=== PATIENT | female | born 1975 | race Caucasian/White ===

== ENCOUNTER → 2016-08-26 | Outpatient (CLI) | payer OTHER ==
--- NOTE | 2016-08-30 07:46 | MM ---
Reason for exam: screening (asymptomatic). Last mammogram was performed 1 year ago. History: Family history of breast cancer in maternal grandmother at age 76 and breast cancer in maternal aunt at age 50. Took hormonal contraceptives for 21 years 1 month beginning at age 17. Physical Findings: A clinical breast exam by your physician is recommended on an annual basis and results should be correlated with mammographic findings. MG Screening Mammo w CAD Bilateral CC and MLO view(s) were taken. Prior study comparison: August 21, 2015, bilateral MG 3d screening mammo w/cad. July 22, 2014, bilateral MG screening mammo w CAD. June 26, 2013, bilateral digital screening mammo w/CAD. The breast tissue is heterogeneously dense. This may lower the sensitivity of mammography. No significant changes when compared with prior studies. ASSESSMENT: Negative, BI-RAD 1 RECOMMENDATION: Routine screening mammogram of both breasts in 1 year.
== END | disposition home or self-care (01) ==
LOC: RADMAMWWP 15:12
PROVIDERS: ATTEND Obstetrics & Gynecology
DX: Z12.31 Encounter for screening mammogram for malignant neoplasm of breast (principal)

== ENCOUNTER → 2018-01-08 | Outpatient (CLI) | payer OTHER ==
--- NOTE | 2018-01-08 09:57 | CT ---
EXAMINATION TYPE: CT abdomen pelvis wo con DATE OF EXAM: 01/08/2018 COMPARISON: None HISTORY: Abdominal pain/cramping CT DLP: 310.8 mGycm Automated exposure control for dose reduction was used. TECHNIQUE: Helical acquisition of images was performed from the lung bases through the pelvis. No IV contrast was administered. Oral contrast was administered. Lack of IV contrast limits assessment of the abdominal viscera. FINDINGS: LUNG BASES: No significant abnormality is appreciated. LIVER/GB: Postcholecystectomy clips are noted. No unusual fluid collections are seen. Liver homogeneo usly noncontrast technique. PANCREAS: No significant abnormality is seen. SPLEEN: No significant abnormality is seen. ADRENALS: No significant abnormality is seen. KIDNEYS: No significant abnormality is seen. ADENOPATHY: None visualized. OSSEOUS STRUCTURES: Severe degenerative disc disease L5-S1 with vacuum disc BOWEL: Bowel gas pattern nonspecific with no obstruction. Retained bowel content within the colon. A ppendix normal. OTHER: No free fluid. Aorta of normal caliber. Right adnexal cyst likely ovarian measuring 2 cm. Tiny fat-containing periumbilical hernia. IMPRESSION: 1. Postcholecystectomy. 2. There is a 2.1 cm right adnexal cyst likely ovarian correlate clinically. 3. No free fluid or free air. No diagnostic evidence of bowel obstruction.
== END | disposition home or self-care (01) ==
LOC: RADCTMAIN 07:53
PROVIDERS: ATTEND Family Medicine
DX: N83.8 Other noninflammatory disorders of ovary, fallopian tube and broad ligament (principal); Z90.49 Acquired absence of other specified parts of digestive tract
CPT/HCPCS: 74176

== ENCOUNTER → 2018-03-02 | Outpatient (CLI) | payer OTHER ==
--- NOTE | 2018-03-02 15:14 | US ---
EXAMINATION TYPE: US pelvic complete DATE OF EXAM: 03/02/2018 COMPARISON: CT 01/08/18 CLINICAL HISTORY: N83.209 OVARIAN CYST. Right ovarian cyst seen on previous CT TECHNIQUE: Transabdominal (TA). Date of LMP: 02/17/18 EXAM MEASUREMENTS: Uterus: 7.6 x 4.2 x 3.6 cm Endometrial Stripe: 0.3 cm Right Ovary: 2.9 x 2.6 x 2.2 cm Left Ovary: 2.5 x 1.8 x 1.7 cm 1. Uterus: Anteverted wnl 2. Endometrium: wnl 3. Right Ovary: Ovarian cyst = 2.7 x 1.6 x 2.0 cm 4. Left Ovary: wnl 5. Bilateral Adnexa: wnl 6. Posterior cul-de-sac: wnl IMPRESSION: 1. Right ovarian cyst. Follow-up is recommended.
== END | disposition home or self-care (01) ==
LOC: RADUSWWP 14:46
PROVIDERS: ATTEND Family Medicine
DX: N83.201 Unspecified ovarian cyst, right side (principal)
CPT/HCPCS: 76856

== ENCOUNTER → 2018-07-11 | Outpatient (CLI) | payer OTHER ==
--- NOTE | 2018-07-11 10:10 | MM ---
Reason for exam: screening (asymptomatic). Last mammogram was performed 1 year and 10 months ago. History: Family history of breast cancer in maternal grandmother at age 76 and breast cancer in maternal aunt at age 50. Took hormonal contraceptives for 21 years 1 month beginning at age 17. Physical Findings: A clinical breast exam by your physician is recommended on an annual basis and results should be correlated with mammographic findings. MG Screening Mammo w CAD Bilateral CC and MLO view(s) were taken. Prior study comparison: August 26, 2016, bilateral MG screening mammo w CAD. August 21, 2015, bilateral MG 3d screening mammo w/cad. The breast tissue is heterogeneously dense. This may lower the sensitivity of mammography. Partially obscured 1.2cm nodularity centrally right CC view. There are dense tissues and this is obscured on the MLO view. ASSESSMENT: Incomplete: need additional imaging evaluation, BI-RAD 0 RECOMMENDATION: Special view mammogram and ultrasound of the left breast. [facility] will attempt to contact patient to return for supplemental views and ultrasound.
== END | disposition home or self-care (01) ==
LOC: RADMAMWWP 07:29
PROVIDERS: ATTEND Obstetrics & Gynecology
DX: Z12.31 Encounter for screening mammogram for malignant neoplasm of breast (principal)
CPT/HCPCS: 77067

== ENCOUNTER → 2018-07-20 | Outpatient (CLI) | payer OTHER ==
--- NOTE | 2018-07-20 10:33 | MM ---
Reason for exam: additional evaluation requested from abnormal screening. Last mammogram was performed less than 1 month ago. History: Family history of breast cancer in maternal grandmother at age 76 and breast cancer in maternal aunt at age 50. Took hormonal contraceptives for 21 years 1 month beginning at age 17. Physical Findings: Nurse Summary: 1cm nodule in the left rebast at 12-2 o'clock (nurse kp). MG 3D Work Up W/Cad LT CC, MLO, and LM view(s) were taken of the left breast. Prior study comparison: July 11, 2018, bilateral MG screening mammo w CAD. August 26, 2016, bilateral MG screening mammo w CAD. The breast tissue is heterogeneously dense. This may lower the sensitivity of mammography. Asymmetric breast tissue in the left breast at 12 o'clock 5cm from nipple. These results were verbally communicated with the patient and result sheet given to the patient on 07/20/18. ASSESSMENT: Incomplete: need additional imaging evaluation, BI-RAD 0 RECOMMENDATION: Ultrasound of the left breast.
--- NOTE | 2018-07-20 10:35 | USB ---
Reason for exam: additional evaluation requested from abnormal screening. History: Family history of breast cancer in maternal grandmother at age 76 and breast cancer in maternal aunt at age 50. Took hormonal contraceptives for 21 years 1 month beginning at age 17. US Breast Workup Limited LT Left limited breast ultrasound including focal area of concern, retroareolar and axilla demonstrates a 1.1 x 1.5 x 0.8cm oval, cystic lesion at 1 o'clock BB and duct ectasia at the posterior nipple. These results were verbally communicated with the patient and result sheet given to the patient on 07/20/18. ASSESSMENT: Benign, BI-RAD 2 RECOMMENDATION: Return to routine screening mammogram schedule for both breasts.
== END | disposition home or self-care (01) ==
LOC: RADMAMWWP 08:59
PROVIDERS: ATTEND Obstetrics & Gynecology
DX: R92.8 Other abnormal and inconclusive findings on diagnostic imaging of breast (principal)
CPT/HCPCS: 77065; 76642; G0279; 77061

== ENCOUNTER → 2018-08-10 | Outpatient (CLI) | payer OTHER ==
--- NOTE | 2018-08-10 13:47 | US ---
EXAMINATION TYPE: US pelvic complete DATE OF EXAM: 08/10/2018 COMPARISON: Pelvic ultrasound dated 02/22/2018 CLINICAL HISTORY: N83.209 Ovarian Cyst. Follow up ovarian cyst. TECHNIQUE: Transabdominal (TA). Transabdominal sonographic images of the pelvis were acquired. Date of LMP: 07/31/2018, A2 EXAM MEASUREMENTS: Uterus: 6.9 x 3.6 x 3.1 cm Endometrial Stripe: 0.4 cm Right Ovary: 2.8 x 1.7 x 1.5 cm Left Ovary: 3.3 x 1.7 x 1.0 cm 1. Uterus: Anteverted 2. Endometrium: wnl 3. Right Ovary: 2 follicles are seen of the right ovary measuring 1.4 and 1.3 cm. 4. Left Ovary: wnl 5. Bilateral Adnexa: wnl 6. Posterior cul-de-sac: no free fluid IMPRESSION: The previously seen right ovarian cyst has resolved in the interim with small follicles n ow seen of the right ovary, physiologic.
== END | disposition home or self-care (01) ==
LOC: RADUSWWP 12:13
PROVIDERS: ATTEND Family Medicine
DX: N83.209 Unspecified ovarian cyst, unspecified side (principal)
CPT/HCPCS: 76856

== ENCOUNTER → 2018-11-06 | Outpatient (CLI) | payer OTHER ==
--- NOTE | 2018-11-07 08:24 | USB ---
Reason for exam: clinical finding. History: Family history of breast cancer in maternal grandmother at age 76 and breast cancer in maternal aunt at age 50. Took hormonal contraceptives for 21 years 1 month beginning at age 17. Indicated problem(s): palpable abnormality in the right breast. Physical Findings: Nurse Summary: left breast more prominent than right, all soft, nodular, movable (nurse ts). US Breast RT Right complete breast ultrasound includes all four quadrants, the retroareolar region and axilla. Finding demonstrates a 0.4 x 0.3 x 0.3cm cystic lesion at 8 o'clock. Patient's palpable has resolved since menses. These results were verbally communicated with the patient and result sheet given to the patient on 11/06/18. ASSESSMENT: Benign, BI-RAD 2 RECOMMENDATION: Return to routine screening mammogram schedule for both breasts. Manage patient on a clinical basis.
== END | disposition home or self-care (01) ==
LOC: RADUSWWP 14:54
PROVIDERS: ATTEND Obstetrics & Gynecology
DX: N63.10 Unspecified lump in the right breast, unspecified quadrant (principal)

== ENCOUNTER → 2019-01-07 | Outpatient (CLI) | payer OTHER ==
--- NOTE | 2019-01-07 15:56 | US ---
EXAMINATION TYPE: US carotid duplex BILAT DATE OF EXAM: 01/07/2019 COMPARISON: NONE CLINICAL HISTORY: R09.89 Other specified symptoms and signs.... Bruit EXAM MEASUREMENTS: RIGHT: Peak Systolic Velocity (PSV) cm/sec ----- Right CCA: 90.8 ----- Right ICA: 135.0 ----- Right ECA: 107.2 ICA/CCA ratio: 1.5 RIGHT: End Diastole cm/sec ----- Right CCA: 28.1 ----- Right ICA: 62.3 ----- Right ECA: 13.4 LEFT: Peak Systolic Velocity (PSV) cm/sec ----- Left CCA: 75.4 ----- Left ICA: 139.9 ----- Left ECA: 104.5 ICA/CCA ratio: 1.9 LEFT: End Diastole cm/sec ----- Left CCA: 25.9 ----- Left ICA: 67.2 ----- Left ECA: 21.0 VERTEBRALS (direction of flow): Right Vertebral: Antegrade Left Vertebral: Antegrade Rhythm: Normal No elevated velocities, no significant stenosis. IMPRESSION: Elevated velocities of the internal carotid arteries and nearly elevated internal carotid artery to common carotid artery ratios favor a stenosis of 50-69% stenosis of both internal carotid arteries. These could be further assessed with CTA neck. Criteria for Assigning % of Stenosis / Diameter reduction (Estimation based on the indirect measurements of the internal carotid artery velocities (ICA PSV). 1. Normal (no stenosis)=ICA PSV < 125 cm/s: ratio < 2.0: ICA EDV<40 cm/s. 2. Less than 50% stenosis=ICA PSV < 125 cm/s: ratio < 2.0: ICA EDV<40 cm/s. 3. 50 to 69% stenosis=ICA PSV of 125 to 230 cm/s: ration 2.0 ? 4.0: ICA EDV 40-100 cm/s. 4. Greater than 70% stenosis to near occlusion= ICA PSV > 230 cm/s: ratio > 4.0: ICA EDV > 100 cm/s. 5. Near occlusion= ICA PSV velocities may be low or undetectable: variable ratio and ICA EDV. 6. Total occlusion=unable to detect flow.
== END | disposition home or self-care (01) ==
LOC: RADUSWWP 15:21
PROVIDERS: ATTEND Family Medicine
DX: I65.23 Occlusion and stenosis of bilateral carotid arteries (principal)
CPT/HCPCS: 93880

== ENCOUNTER → 2019-01-10 | Outpatient (CLI) | payer OTHER ==
[2019-01-10 15:16] LABS: Chol/HDL Ratio 3.03; LDL Cholesterol,Calculated 91.8 mg/dL (0.0-131.0); VLDL Calculation 32.2 mg/dL (5.00-40.00)
== END | disposition home or self-care (01) ==
LOC: LABWHC1 06:47
PROVIDERS: ATTEND Nurse Practitioner
DX: E78.2 Mixed hyperlipidemia (principal)
CPT/HCPCS: 36415; 80061; 84450; 84460

== ENCOUNTER → 2019-01-28 | Outpatient (CLI) | payer OTHER | END | disposition home or self-care (01) | LOC: RADMRIMAIN 20:34 | PROVIDERS: ATTEND Family Medicine | DX: Z53.9 Procedure and treatment not carried out, unspecified reason (principal) ==

== ENCOUNTER → 2019-02-22 | Outpatient (CLI) | payer OTHER ==
[2019-02-22 16:16] LABS: African American GFR (CKD) 103.2 (60.0-200.0); Albumin 4.6 g/dL (3.80-4.90); Albumin/Globulin Ratio 2.42 (1.60-3.17); Anion Gap 9.7 mmol/L (4.00-12.00); BUN/Creat Ratio 16.25 Ratio (12.00-20.00); Calcium 8.8 mg/dL (8.7-10.3); Carbon Dioxide 23.3 mmol/L (21.6-31.8); Globulin 1.9 g/dL (1.6-3.3); Potassium 3.9 mmol/L (3.5-5.5); Total Bilirubin 0.4 mg/dL (0.2-1.2); Total Protein 6.5 g/dL (6.2-8.2)
== END | disposition home or self-care (01) ==
LOC: LABWHC1 09:31
PROVIDERS: ATTEND Internal Medicine Interventional Cardiology
DX: I65.29 Occlusion and stenosis of unspecified carotid artery (principal)
CPT/HCPCS: 36415; 80053

== ENCOUNTER → 2020-01-29 | Outpatient (CLI) | payer BC ==
--- NOTE | 2020-01-29 14:30 | MM ---
Reason for exam: screening (asymptomatic). Last mammogram was performed 1 year and 6 months ago. History: Family history of breast cancer in maternal grandmother at age 76 and breast cancer in maternal aunt at age 50. Took hormonal contraceptives for 21 years 1 month beginning at age 17. Physical Findings: A clinical breast exam by your physician is recommended on an annual basis and results should be correlated with mammographic findings. MG 3D Screening Mammo W/Cad Bilateral CC and MLO view(s) were taken. Prior study comparison: July 20, 2018, left breast MG 3d work up w/cad LT. July 11, 2018, bilateral MG screening mammo w CAD. The breast tissue is heterogeneously dense. This may lower the sensitivity of mammography. Finding: There is a 16 mm indistinct round mass in the upper inner quadrant, middle position of the left breast MLO 36/60 and CC 41/69. Increase in size since July 20, 2018 and July 11, 2018. ASSESSMENT: Incomplete: need additional imaging evaluation, BI-RAD 0 RECOMMENDATION: Ultrasound of the left breast. [facility] will attempt to contact patient to return for ultrasound.
== END | disposition home or self-care (01) ==
LOC: RADMAMWWP 09:54
PROVIDERS: ATTEND Obstetrics & Gynecology
DX: Z12.31 Encounter for screening mammogram for malignant neoplasm of breast (principal)
CPT/HCPCS: 77063; 77067

== ENCOUNTER → 2020-02-07 | Outpatient (CLI) | payer BC ==
--- NOTE | 2020-02-07 11:41 | USB ---
Reason for exam: additional evaluation requested from abnormal screening. History: Family history of breast cancer in maternal grandmother at age 76 and breast cancer in maternal aunt at age 50. Took hormonal contraceptives for 21 years 1 month beginning at age 17. Physical Findings: Nurse Summary: 1.5cm nodule palpated left breast 12-1 o'clock, thickening bilateral upper outer quadrant (nurse TM). US Breast Workup Limited LT Left limited breast ultrasound including focal area of concern, retroareolar and axilla demonstrates a 1.7 x 1.2 x 1.7cm oval, lobular, cystic lesion at 12 o'clock BB, has increased in size from 07/20/18 but remains benign morphology and a 0.9cm oval, lymph node at the axilla tail. These results were verbally communicated with the patient and result sheet given to the patient on 02/07/20. ASSESSMENT: Benign, BI-RAD 2 RECOMMENDATION: Return to routine screening mammogram schedule for both breasts.
== END | disposition home or self-care (01) ==
LOC: RADUSWWP 08:44
PROVIDERS: ATTEND Obstetrics & Gynecology
DX: R92.8 Other abnormal and inconclusive findings on diagnostic imaging of breast (principal)

== ENCOUNTER → 2020-04-08 | Outpatient (CLI) | payer BC ==
--- NOTE | 2020-04-08 17:59 | US ---
EXAMINATION TYPE: US thyroid st tissue head/neck DATE OF EXAM: 04/08/2020 COMPARISON: NONE CLINICAL HISTORY: R59.9 lymph node in neck. Patient feels lump right side of neck under ear for approximately two weeks. Scanning was performed directly over palpable, right side of neck. There is a 1.1 x 0.3 cm normal sandro earing lymph node noted. No other abnormality noted. IMPRESSION: 1. Lymph node at the palpable abnormality.
== END | disposition home or self-care (01) ==
LOC: RADUSWWP 16:52
PROVIDERS: ATTEND Family Medicine
DX: R59.0 Localized enlarged lymph nodes (principal)
CPT/HCPCS: 76536

== ENCOUNTER → 2020-07-03 | Outpatient (CLI) | payer BC ==
--- NOTE | 2020-07-03 11:40 | US ---
EXAMINATION TYPE: US carotid duplex BILAT DATE OF EXAM: 07/03/2020 COMPARISON: NONE CLINICAL HISTORY: Z85.3 personal history of breast cancer. on Plavix for plaque per patient EXAM MEASUREMENTS: RIGHT: Peak Systolic Velocity (PSV) cm/sec ----- Right CCA: 92.9 ----- Right ICA: 157 ----- Right ECA: 57 ICA/CCA ratio: 1.6 RIGHT: End Diastole cm/sec ----- Right CCA: 30.5 ----- Right ICA: 65.2 ----- Right ECA: 23.6 LEFT: Peak Systolic Velocity (PSV) cm/sec ----- Left CCA: 83.2 ----- Left ICA: 125.0 ----- Left ECA: 171.0 ICA/CCA ratio: 1.5 LEFT: End Diastole cm/sec ----- Left CCA: 33.4 ----- Left ICA: 56.5 ----- Left ECA: 39.5 VERTEBRALS (direction of flow): Right Vertebral: Antegrade Left Vertebral: Antegrade Rhythm: Normal Mild homogeneous plaque with no significant stenosis seen. IMPRESSION: No evidence for hemodynamically significant stenosis. Criteria for Assigning % of Stenosis / Diameter reduction (Estimation based on the indirect measurements of the internal carotid artery velocities (ICA PSV). 1. Normal (no stenosis)=ICA PSV < 125 cm/s: ratio < 2.0: ICA EDV<40 cm/s. 2. Less than 50% stenosis=ICA PSV < 125 cm/s: ratio < 2.0: ICA EDV<40 cm/s. 3. 50 to 69% stenosis=ICA PSV of 125 to 230 cm/s: ration 2.0 ? 4.0: ICA EDV 40-100 cm/s. 4. Greater than 70% stenosis to near occlusion= ICA PSV > 230 cm/s: ratio > 4.0: ICA EDV > 100 cm/s. 5. Near occlusion= ICA PSV velocities may be low or undetectable: variable ratio and ICA EDV. 6. Total occlusion=unable to detect flow. Hepatic lobe
--- NOTE | 2020-07-03 12:50 | ECHOF ---
Referral Reason:I25.10 CAD MEASUREMENTS -------- HEIGHT: 157.5 cm WEIGHT: 64.4 kg BP: IVSd: 0.9 cm (0.6 - 1.1) LVIDd: 4.1 cm (3.9 - 5.3) LVPWd: 1.4 cm (0.6 - 1.1) IVSs: 1.2 cm LVIDs: 2.4 cm LVPWs: 1.5 cm LAESV Index (A-L): 16.06 ml/m Ao Diam: 2.3 cm (2.0 - 3.7) AV Cusp: 1.7 cm (1.5 - 2.6) MV EXCURSION: 14.382 mm (> 18.000) MV EF SLOPE: 89 mm/s (70 - 150) EPSS: 0.6 cm MV E Kuldeep: 1.04 m/s MV DecT: 157 ms MV A Kuldeep: 1.01 m/s MV E/A Ratio: 1.02 RAP: 5.00 mmHg RVSP: 26.33 mmHg FINDINGS -------- Sinus rhythm. This was a technically adequate study. LV size, wall thickness and systolic function are normal, with an EF greater than 55%. The left lyle tricular size is normal. The diastolic filling pattern is normal for the age of the patient 11.27. The right ventricle is normal in size. Normal LA size by volume 22+/-6 ml/m2. The right atrial size is normal. The aortic valve is trileaflet, and appears structurally normal. No aortic stenosis or regurgitation. The mitral valve is normal. There is trace mitral regurgitation. The tricuspid valve appears structurally normal. Mild tricuspid regurgitation present. Right vent ricular systolic pressure is normal at < 35 mmHg. There is no pulmonic regurgitation present. The aortic root size is normal. There is no pericardial effusion. CONCLUSIONS -------- 1. LV size, wall thickness and systolic function are normal, with an EF greater than 55%. 2. Normal LA size by volume 22+/-6 ml/m2. 3. The aortic valve is trileaflet, and appears structurally normal. No aortic stenosis or regurgitati on. 4. There is trace mitral regurgitation. 5. Mild tricuspid regurgitation present. 6. There is no pericardial effusion. DRAMATIC AGENT: Shannan Hobson RDCS
== END ==
LOC: RADUSWWP 11:00
PROVIDERS: ATTEND Internal Medicine Interventional Cardiology
DX: I08.3 Combined rheumatic disorders of mitral, aortic and tricuspid valves (principal); I65.29 Occlusion and stenosis of unspecified carotid artery
CPT/HCPCS: 93306; 93880

== ENCOUNTER → 2021-04-21 | Outpatient (CLI) | payer BC ==
--- NOTE | 2021-04-21 12:06 | MM ---
Reason for exam: clinical finding. Last mammogram was performed 1 year and 3 months ago. History: Family history of breast cancer in maternal grandmother at age 76 and breast cancer in maternal aunt at age 50. Took hormonal contraceptives for 21 years 1 month beginning at age 17. Indicated problem(s): lump or thickening in the right breast. Physical Findings: Nurse Summary: 1cm nodule in the right breast at 10 o'clock and 12 o'clock (nurse mj). MG 3D Diag Mammo W/Cad MICHELE Bilateral CC and MLO view(s) were taken. LM, spot compression MLO, spot compression LM, and spot compression CC view(s) were taken of the right breast. Prior study comparison: January 29, 2020, bilateral MG 3d screening mammo w/cad. July 20, 2018, left breast MG 3d work up w/cad LT. No suspicious calcifications are seen. Mass distortion 12 o'clock right breast, ultrasound recommended. These results were verbally communicated with the patient and result sheet given to the patient on 04/21/21. ASSESSMENT: Incomplete: need additional imaging evaluation, BI-RAD 0 RECOMMENDATION: Ultrasound of the right breast.
--- NOTE | 2021-04-21 12:09 | USB ---
Reason for exam: additional evaluation requested from abnormal screening. History: Family history of breast cancer in maternal grandmother at age 76 and breast cancer in maternal aunt at age 50. Took hormonal contraceptives for 21 years 1 month beginning at age 17. US Breast Limited RT Right limited breast ultrasound including focal area of concern, retroareolar and axilla demonstrates a 0.8 x 0.8 x 0.4cm cystic lesion at 9 o'clock and a 0.8 x 0.8 x 0.5cm cystic lesion at 10 o'clock. Distinct lesion difficult to visualize by ultrasound.Peak semaj tissue lesion versus other etiology. Stereotactic core biopsy recommended. These results were verbally communicated with the patient and result sheet given to the patient on 04/21/21. ASSESSMENT: Suspicious, BI-RAD 4 RECOMMENDATION: Stereotactic core biopsy of the right breast. (3D stereotactic core biopsy) Called Dr. Gomez's office with mammographic findings. Office will contact patient to schedule 3D stereotactic core biopsy. PRELIMINARY REPORT CALLED AND FAXED TO DR. GOMEZ ON 04/21/21.
== END | disposition home or self-care (01) ==
LOC: RADMAMWWP 07:06
PROVIDERS: ATTEND Obstetrics & Gynecology
DX: N60.01 Solitary cyst of right breast (principal); Z80.3 Family history of malignant neoplasm of breast
CPT/HCPCS: 77062; 77066

== ENCOUNTER → 2021-05-28 | Outpatient (CLI) | payer BC ==
[2021-05-28 15:22] VITALS: BP 146/90; PULSE 86; RESP 18; TEMP 98.1
--- NOTE | 2021-05-28 16:02 | P.GSHP ---
History of Present Illness H&P Date: 05/28/21 Chief Complaint: abnormal right breast mammogram Annalise is a 46 year old whtie femael seen in consultation for Dr. Gomez regarding a mammographic abnormality in the right breast. She has some increased nodularity in the 12 o'clock position of the right breast after she was told that there was a radiographic abnormality at that site. Prior to that she did not feel any new lumps masses or nodules of concern in either breast. She underwent a bilateral mammogram on which revealed an area of distortion in the 12 o'clock position of the right breast. An ultrasound was then performed on the same date which revealed a cystic lesion at 9:00 and the cystic lesion at 10:00 however it was felt that a distinct lesion was difficult to visualize by ultrasound. Therefore stereotactic core biopsy on a 3-D stereotactic core unit was recommended. The films have been reviewed with Dr. Leung who feels that the area can be seen and he would suggest starting with an ultrasound guided core biopsy. She has never had any surgery on her breasts before. She is not complaining of any nipple discharge or skin changes. She is not had any trauma or infection in her breast. Her periods are very heavy. Her last menstrual period was approximately 3 weeks ago. BCP: used for 25 years, recently stopped about 1 year ago hormones none nicotine: none caffeine: 2 cups coffee/day; 1 pop/day chocolate: occasional Family history: maternal grandmother: lumpectomy in 70's maternal aunt: bilateral mastectomy; 40's Hormonal History: menarche: 11 M2, age at : 27; breast fed: no periods regular; very heavy BCP: 25 years recently stopped Surgical history: gallbladder Medical History: HTN leaking heart valves bilateral carotid stenosis Social History: nicotine: none alcohol: occasional drugs: none - Constitutional Constitutional: Denies chills, Denies fever - EENT 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 Eyes: denies blurred vision, denies pain Ears: deny: decreased hearing, tinnitus Ears, nose, mouth and throat: Denies headache, Denies sore throat - Cardiovascular Cardiovascular: Denies chest pain, Denies shortness of breath - Respiratory Respiratory: Denies cough, Denies 7 - Gastrointestinal Comment: IBS Gastrointestinal: Denies abdominal pain, Denies diarrhea, Denies nausea, Denies vomiting - Genitourinary (Female) Genitourinary: Denies dysuria, Denies hematuria - Menstruation Menstruation: Reports as per HPI - Musculoskeletal Musculoskeletal: Denies myalgias - Integumentary Integumentary: Denies pruritus, Denies rash - Neurological Neurological: Reports as per HPI, Denies numbness, Denies weakness - Psychiatric Psychiatric: Denies anxiety, Denies depression - Endocrine Endocrine: Denies fatigue, Denies weight change - Hematologic/Lymphatic Comment: aspirin, plavix daily for carotid stenosis - Allergic/Immunologic Allergic/Immunologic: Reports seasonal allergies Past Medical History History of Any Multi-Drug Resistant Organisms: None Reported Smoking Status: Never smoker Medications and Allergies Home Medications Medication Instructions Recorded Confirmed Type Aspirin 81 mg PO DAILY 05/28/21 05/28/21 History Clopidogrel [Plavix] 75 mg PO DAILY 05/28/21 05/28/21 History Losartan [Cozaar] 50 mg PO DAILY 05/28/21 05/28/21 History Rosuvastatin Calcium [Crestor] 5 mg PO DAILY 05/28/21 05/28/21 History Allergies Allergy/AdvReac Type Severity Reaction Status Date / Time No Known Allergies Allergy Verified 05/28/21 15:17 Surgical - Exam Vital Signs Temp Pulse Resp BP Pulse Ox 98.1 F 86 18 146/90 100 05/28/21 15:18 05/28/21 15:18 05/28/21 15:18 05/28/21 15:18 05/28/21 15:18 BMI 25.8 - General no distress - Eyes normal ocular movement - ENT no hearing loss, no congestion - Neck trachea midline - Respiratory normal respiratory effort - Cardiovascular Rhythm: regular Heart Sounds: normal: S1, S2 - Abdomen Abdomen: soft, non tender, no guarding, no rigid, no rebound - Integumentary normal turgor - Neurologic no disoriented, no combative - Musculoskeletal normal gait, normal posture - Psychiatric oriented to time, oriented to person, oriented to place, speech is normal, memory intact Breast Exam: BRA: 36C inspection: Bilateral grade 1 ptosis Palpation: Right breast: Multiple positional exam fibrocystic changes some very dense breast tissue with slight increased density at 12 o'clock position of the right breast Right axilla: No adenopathy of concern Left breast: Multi-positional exam fibrocystic changes no dominant masses or nodules of concern Left axilla: No adenopathy of concern Results Mammogram and ultrasound reviewed in detail with Dr. Odom 12 o'clock position right breast there is some architectural distortion which is believed to be represented on the ultrasound as well Assessment and Plan Assessment: Impression: Patient is on aspirin and Plavix secondary to carotid stenosis Hypertension Radiographic abnormality right breast Family history of breast cancer Plan: ultrasound core biopsy of the right breast stop aspirin and plavix prior to biopsy need OK from DR. Mancia; follow up after biopsy CC: Dr. Gomez
== END ==
LOC: WWCWWP 15:04
PROVIDERS: ATTEND Surgery
DX: R92.8 Other abnormal and inconclusive findings on diagnostic imaging of breast (principal); I65.23 Occlusion and stenosis of bilateral carotid arteries; I10 Essential (primary) hypertension; Z80.3 Family history of malignant neoplasm of breast; Z79.82 Long term (current) use of aspirin; Z79.02 Long term (current) use of antithrombotics/antiplatelets

== ENCOUNTER → 2021-06-18 | Outpatient (CLI) | payer BC ==
[2021-06-18 14:01] VITALS: BP 156/87; PULSE 79; RESP 18; TEMP 98
--- NOTE | 2021-06-18 14:31 | P.PN ---
Subjective Progress Note Date: 06/18/21 Principal diagnosis: Radiographic abnormality right breast/status post stereo biopsy Annalise is a 46 year old whtie femael seen in consultation for Dr. Gomez regarding a mammographic abnormality in the right breast. She has some increased nodularity in the 12 o'clock position of the right breast after she was told that there was a radiographic abnormality at that site. Prior to that she did not feel any new lumps masses or nodules of concern in either breast. She underwent a bilateral mammogram on which revealed an area of distortion in the 12 o'clock position of the right breast. An ultrasound was then performed on the same date which revealed a cystic lesion at 9:00 and the cystic lesion at 10:00 however it was felt that a distinct lesion was difficult to visualize by ultrasound. Therefore stereotactic core biopsy on a 3-D stereotactic core unit was recommended. The films have been reviewed with Dr. Leung who feels that the area can be seen and he would suggest starting with an ultrasound guided core biopsy. She has never had any surgery on her breasts before. She is not complaining of any nipple discharge or skin changes. She is not had any trauma or infection in her breast. Her periods are very heavy. Her last menstrual period was approximately 3 weeks ago. 06-18-21 The patient had a 3-D stereotactic core biopsy performed and 4721. Postprocedure the clip which had been deployed is not present on the mammogram films. The pathology reveals benign breast parenchyma with mild focal stromal fibrosis. The question as was the area adequately sampled. Her x-rays were reviewed with Dr. Odom. He feels that the area should have an attempt at ultrasound for biopsy performed. I discussed this with the patient and her fianc. The patient did develop some ecchymosis and hematoma following the procedure. BCP: used for 25 years, recently stopped about 1 year ago hormones none nicotine: none caffeine: 2 cups coffee/day; 1 pop/day chocolate: occasional Family history: maternal grandmother: lumpectomy in 70's maternal aunt: bilateral mastectomy; 40's Hormonal History: menarche: 11 M2, age at : 27; breast fed: no periods regular; very heavy BCP: 25 years recently stopped Surgical history: gallbladder Medical History: HTN leaking heart valves bilateral carotid stenosis Social History: nicotine: none alcohol: occasional drugs: none - Constitutional Constitutional: Denies chills, Denies fever - EENT 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 Eyes: denies blurred vision, denies pain Ears: deny: decreased hearing, tinnitus Ears, nose, mouth and throat: Denies headache, Denies sore throat - Cardiovascular Cardiovascular: Denies chest pain, Denies shortness of breath - Respiratory Respiratory: Denies cough - Gastrointestinal Comment: IBS Gastrointestinal: Denies abdominal pain, Denies diarrhea, Denies nausea, Denies vomiting - Genitourinary (Female) Genitourinary: Denies dysuria, Denies hematuria - Menstruation Menstruation: Reports as per HPI - Musculoskeletal Musculoskeletal: Denies myalgias - Integumentary Integumentary: Denies pruritus, Denies rash - Neurological Neurological: Reports as per HPI, Denies numbness, Denies weakness - Psychiatric Psychiatric: Denies anxiety, Denies depression - Endocrine Endocrine: Denies fatigue, Denies weight change - Hematologic/Lymphatic Comment: aspirin, plavix daily for carotid stenosis - Allergic/Immunologic Allergic/Immunologic: Reports seasonal allergies Objective - Vital Signs Vital signs: Vital Signs Temp 98.0 F 06/18/21 13:58 Pulse 79 06/18/21 13:58 Resp 18 06/18/21 13:58 BP 156/87 06/18/21 13:58 Pulse Ox 100 06/18/21 13:58 Intake & Output 06/17/21 06/18/21 06/18/21 18:59 06:59 18:59 Weight 61.689 kg - Constitutional General appearance: Present: cooperative - EENT Eyes: Present: EOMI ENT: Present: hearing grossly normal - Neck Neck: Present: normal ROM - Respiratory Respiratory: bilateral: CTA - Cardiovascular Rhythm: regular Heart sounds: normal: S1, S2 - Integumentary Integumentary Comment(s): echymosis right breast 12 o'clock position extending to the upper outer quadrant, hematoma at the biopsy site No evidence of infection Assessment and Plan Assessment: Impression: Patient status post sterotactic core biopsy right breast/pathology benign breast parenchyma question as to whether the area of concern was adequately sampled Radiographs reviewed with Dr. Stewart from radiology recommendation is for ultrasound-guided core biopsy, the patient however has a hematoma at the site of the biopsy and at this point we would like the hematoma to resolve prior to attempting another biopsy Repeat ultrasound of the right breast in 8 weeks Plan: Right breast ultrasound 8 weeks with physician exam at that time, to preceed with an ultrsound core biopsy of the site of concern
== END ==
LOC: WWCWWP 13:46
PROVIDERS: ATTEND Surgery
DX: L76.82 Other postprocedural complications of skin and subcutaneous tissue (principal); I10 Essential (primary) hypertension

== ENCOUNTER → 2021-08-20 | Outpatient (CLI) | payer BC ==
--- NOTE | 2021-08-20 15:51 | USB ---
Reason for Exam: Follow-up at short interval from prior study. Patient History: Menarche at age 11. First Full-Term at age 27. Hormonal Contraceptives, starting at age 17 for 21 years, 1 month. Maternal grandmother had breast cancer, age 76. Maternal aunt had breast cancer, age 50. Risk Values: Raya 5 year model risk: 1.0%. NCI Lifetime model risk: 10.3%. Prior Study Comparison: 07/20/2018 Left Diagnostic Mammogram, [facility]. 01/29/2020 Bilateral Screening Mammogram, [facility]. 04/21/2021 Bilateral Diagnostic Mammogram, [facility]. Findings: The upper outer quadrant of the right breast, the lower outer quadrant of the left breast, the axilla of the right breast and the retroareolar of the right breast were scanned. Finding 1: Simple cyst. Laterality: Right. Size 9 x 5 x 8 mm. 9 O'clock 8 cm cm from nipple. Finding 2: Simple cyst. Laterality: Right. Size 9 x 5 x 8 mm. 10 O'clock Quadrant: Upper outer. 8 cm cm from nipple. Finding 3: Complicated cysts. Laterality: Left. Palpable Abnormality seen. Size 17 x 15 x 17 mm. 2 O'clock 4 cm cm from nipple. . Area of abnormal shadowing is noted at the right 12:00 position. Tissue diagnosis is recommended. Overall Assessment: Suspicious, BI-RAD 4 Management: Ultrasound Core Biopsy of the right breast. Diagnostic Breast Ultrasound of the left breast in 6 months. A clinical breast exam by your physician is recommended on an annual basis and results should be correlated with mammographic findings. Electronically signed and approved by: Isaías Francis M.D. Radiologis
== END | disposition home or self-care (01) ==
LOC: RADUSWWP 14:55
PROVIDERS: ATTEND Surgery
DX: N60.01 Solitary cyst of right breast (principal); N60.02 Solitary cyst of left breast; Z80.3 Family history of malignant neoplasm of breast

== ENCOUNTER → 2021-09-02 | Day surgery (SDC) | payer BC ==
--- NOTE | 2021-09-08 10:33 | USB ---
Reason for Exam: Post Procedure Mammogram. Last screening mammogram was performed 4 month(s) ago. Patient History: Menarche at age 11. First Full-Term at age 27. Hormonal Contraceptives, starting at age 17 for 21 years, 1 month. Maternal grandmother had breast cancer, age 76. Maternal aunt had breast cancer, age 50. Risk Values: Raya 5 year model risk: 1.0%. NCI Lifetime model risk: 10.3%. Prior Study Comparison: 07/20/2018 Left Diagnostic Mammogram, [facility]. 01/29/2020 Bilateral Screening Mammogram, [facility]. 04/21/2021 Bilateral Diagnostic Mammogram, [facility]. Tissue Density: Right: The breast tissue is heterogeneously dense. This may lower the sensitivity of mammography. Pathology Description: Location: 12 o'clock. Needle Type: Celero Cores: 3 Gauge: 12 T3 hydromark coil clip The procedure of ultrasound guided core biopsy was explained to the patient. Benefits, alternatives, and risks were discussed. An informed consent was then obtained. The patient was placed in supine positioning for imaging and for the procedure. The overlying skin was prepped and draped in usual sterile fashion. Lidocaine buffered with bicarbonate was used as anesthetic into the skin and subcutaneous tissue up to area of concern in the right 12:00 breast. A melissa was made with surgical scalpel. Under ultrasound guidance, a 12-gauge vacuum assisted biopsy gun device was used to obtain 3 core samples. Following this, a biopsy clip was left in lesion. Postprocedural mammogram demonstrates appropriate clip deployment. The patient tolerated the procedure well without any immediate complication. The patient was kept in the radiology department for short stay after the procedure and then discharged home in stable condition. Impression: Successful, uncomplicated ultrasound guided core biopsy of area of concern in the right 12:00 breast, full pathology results to follow. Pathology Results: Result: Benign, Fat necrosis. RIGHT BREAST, TWELVE O'CLOCK, ULTRASOUND GUIDED CORE BIOPSY: Scar/fat necrosis with chronic inflammation, hemosiderin laden histiocytes and foreign body giant cell reaction to non-refractile material. Negative for malignancy. Overall Assessment: Benign Assessment: MG diagnostic mammo RT wo CAD - Right: Benign, BI-RAD 2. Management: Diagnostic Mammogram of the right breast in 6 months. Diagnostic Breast Ultrasound of the right breast in 6 months. Electronically signed and approved by: Isaías Francis M.D. Radiologis
== END ==
LOC: RADUSWWP 10:16
PROVIDERS: ATTEND Surgery
DX: N61.0 Mastitis without abscess (principal); L90.5 Scar conditions and fibrosis of skin; Z80.3 Family history of malignant neoplasm of breast
CPT/HCPCS: 88305; 77065; 19083; A4648

== ENCOUNTER → 2022-03-07 | Outpatient (CLI) | payer BC ==
--- NOTE | 2022-03-07 09:05 | MM ---
Reason for Exam: Follow-up at short interval from prior study. Last screening mammogram was performed 11 month(s) ago. Patient History: Menarche at age 11. First Full-Term at age 27. Hormonal Contraceptives, starting at age 17 for 21 years, 1 month. 09/02/2021, Benign US biopsy breast VAD RT on the right side. Maternal grandmother had breast cancer, age 76. Maternal aunt had breast cancer, age 50. Last menstrual period: 02/17/2022 Risk Values: Raya 5 year model risk: 1.3%. NCI Lifetime model risk: 12.1%. Prior Study Comparison: 01/29/2020 Bilateral Screening Mammogram, [facility]. 04/21/2021 Bilateral Diagnostic Mammogram, [facility]. 09/02/2021 Right MG diagnostic mammo RT wo CAD, [facility]. Tissue Density: Right: The breast tissue is heterogeneously dense. This may lower the sensitivity of mammography. Findings: Analyzed By CAD. Persistent area of architectural distortion 12:00 position. Patient's ultrasound microclip from 6 months ago appears to be slightly away from the intended distortion. We note an additional 3-D guided biopsy on 06/10/2021 in which the clip did not appropriately deploy. Reassess with ultrasound. Overall Assessment: Incomplete: need additional imaging evaluation, BI-RAD 0 Management: Diagnostic Breast Ultrasound of the right breast. Electronically signed and approved by: Nicolas Pineda M.D. Radiologist
--- NOTE | 2022-03-07 09:49 | USB ---
Reason for Exam: Follow-up at short interval from prior study. Patient History: Menarche at age 11. First Full-Term at age 27. Hormonal Contraceptives, starting at age 17 for 21 years, 1 month. 09/02/2021, Benign US biopsy breast VAD RT on the right side. Maternal grandmother had breast cancer, age 76. Maternal aunt had breast cancer, age 50. Risk Values: Raya 5 year model risk: 1.3%. NCI Lifetime model risk: 12.1%. Technique: Method: Targeted. Prior Study Comparison: 01/29/2020 Bilateral Screening Mammogram, [facility]. 04/21/2021 Bilateral Diagnostic Mammogram, [facility]. 09/02/2021 Right MG diagnostic mammo RT wo CAD, [facility]. Findings: The upper section of the breast of the right breast, the axilla of the right breast and the retroareolar of the right breast were scanned. Targeted ultrasound right breast 11:00 to 1:00 position. Microclip is noted at the 12:00 position, 4 cm from the nipple. Likely contained within a small residual chronic seroma or hematoma. Suspect the hypoechoic biopsy site to lie just adjacent measuring 1.2 x 1.2 x 0.5 cm. No solid or cystic lesion. Overall Assessment: Suspicious, BI-RAD 4 Management: Surgical Consultation of the right breast. We discussed with the patient the position of the microclip as well as the mammographic finding of architectural distortion. Despite two recent benign breast biopsies, recommend needle localization with surgical excision for the discordant site of architectural distortion. A microclip is located approximately 2 cm superior to the distortion. Refer to the lateral view performed today. Results were given to the patient verbally at the time of exam. Electronically signed and approved by: Nicolas Pineda M.D. Radiologist
== END | disposition home or self-care (01) ==
LOC: RADMAMWWP 08:24
PROVIDERS: ATTEND Surgery
DX: R92.8 Other abnormal and inconclusive findings on diagnostic imaging of breast (principal); Z80.3 Family history of malignant neoplasm of breast
CPT/HCPCS: 77061; 77065

== ENCOUNTER → 2022-03-11 | Outpatient (CLI) | payer BC ==
[2022-03-11 08:48] VITALS: BP 157/94; PULSE 84; RESP 17; TEMP 97.9
--- NOTE | 2022-03-11 09:32 | P.PN ---
Subjective Progress Note Date: 03/11/22 Principal diagnosis: Abnormal right breast mammogram/ultrasound Radiographic abnormality right breast/status post stereo biopsy Annalise is a 47 year old whtie femaudelia seen in consultation for Dr. Gomez regarding a mammographic abnormality in the right breast. She has some incr eased nodularity in the 12 o'clock position of the right breast after she was told that there was a radiographic abnormality at that site. Prior to that she did not feel any new lumps masses or nodules of concern in either breast. She underwent a bilateral mammogram on which revealed an area of distortion in the 12 o'clock position of the right breast. An ultrasound was then performed on the same date which revealed a cystic lesion at 9:00 and the cystic lesion at 10:00 however it was felt that a distinct lesion was difficult to visualize by ultrasound. Therefore stereotactic core biopsy on a 3-D stereotactic core unit was recommended. This was performed at [facility]. This was performed on 47. Pathology revealed benign breast parenchyma with mild focal stromal fibrosis. Following the procedure the clip was not seen well in the breast and there was some question as to whether an area seen on ultrasound had been adequately sampled. Therefore she underwent an ultrasound-guided core biopsy at [facility] on . Pathology revealed scar/fat necrosis with chronic inflammation. She has most recently had a right breast mammogram and ultrasound on 1222. The mammogram reveals persistent area of architectural distortion at the 12 o'clock position. The patient's ultrasound microclip appeared to be distant from the area of concern. The radiologist is therefore recommended a needle localization and excisional biopsy of the area in the operating room. She has never had any surgery on her breasts before. She is not complainin g of any nipple discharge or skin changes. She is not had any trauma or infection in her breast. Her periods are very heavy, this is secondary to the fact that she is on blood thinners related to carotid artery disease. Her last menstrual period was approximately 4 weeks ago. Patient is not complaining of any new distinct masses or nodules of concern in either breast. BCP: used for 25 years, recently stopped about 1 year ago hormones none nicotine: none caffeine: 2 cups coffee/day; 1 pop/day chocolate: occasional Family history: maternal grandmother: lumpectomy in 70's maternal aunt: bilateral mastectomy; 40's Hormonal History: menarche: 11 M2, age at : 27; breast fed: no periods regular; very heavy BCP: 25 years recently stopped Surgical history: gallbladder Medical History: HTN leaking heart valves bilateral carotid stenosis (diagnosed about 1 year ago) Social History: nicotine: none alcohol: occasional drugs: none - Constitutional Constitutional: Denies chills, Denies fever - EENT 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 Eyes: denies blurred vision, denies pain Ears: deny: decreased hearing, tinnitus Ears, nose, mouth and throat: Denies headache, Denies sore throat - Cardiovascular Cardiovascular: Denies chest pain, Denies shortness of breath - Respiratory Respiratory: Denies cough - Gastrointestinal Comment: IBS Gastrointestinal: Denies abdominal pain, Denies diarrhea, Denies nausea, Denies vomiting - Genitourinary (Female) Genitourinary: Denies dysuria, Denies hematuria - Menstruation Menstruation: Reports as per HPI - Musculoskeletal Musculoskeletal: Denies myalgias - Integumentary Integumentary: Denies pruritus, Denies rash - Neurological Neurological: Reports as per HPI, Denies numbness, Denies weakness - Psychiatric Psychiatric: Denies anxiety, Denies depression - Endocrine Endocrine: Denies fatigue, Denies weight change - Hematologic/Lymphatic Comment: aspirin, plavix daily for carotid stenosis - Allergic/Immunologic Allergic/Immunologic: Reports seasonal allergies Objective - Vital Signs Vital signs: Vital Signs Temp 97.9 F 03/11/22 08:46 Pulse 84 03/11/22 08:46 Resp 17 03/11/22 08:46 BP 157/94 03/11/22 08:46 Pulse Ox 100 03/11/22 08:46 FiO2 Intake & Output 03/10/22 03/11/22 03/11/22 18:59 06:59 18:59 Weight 62.142 kg - Constitutional General appearance: Present: cooperative - EENT Eyes: Present: EOMI ENT: Present: hearing grossly normal - Neck Neck: Present: normal ROM - Respiratory Respiratory: bilateral: CTA - Cardiovascular Rhythm: regular Heart sounds: normal: S1, S2 - Gastrointestinal General gastrointestinal: Present: soft - Integumentary Integumentary: Present: normal turgor - Musculoskeletal Musculoskeletal: Present: gait normal - Psychiatric Psychiatric: Present: A&O x's 3, appropriate affect, intact judgment & insight - Additional findings Additional findings: Breast Exam: bra: 38C inspection: Bilateral grade 2 ptosis Palpation: Right breast: Multiple positional exam very dense breast no discrete dominant masses or nodules of concern Right axilla: No adenopathy of concern Left breast: Multi-positional exam fibrocystic changes no dominant masses or nodules of concern Left axilla: No adenopathy of concern Assessment and Plan Assessment: Impression: Patient is status post core biopsy on 2 occasions of the right breast/she has a repeat right breast mammogram and ultrasound performed at 1222 which are uncertain but in the area of concern has been adequately sampled. This has been reviewed in detail with the radiologist and it has been recommended that a needle localization and excisional biopsy of the area of ultrasound abnormality be performed. The patient is last bilateral mammogram was in April 2021 and she will be due for a left breast mammogram Plan: Needle localization lumpectomy right breast via ultrasound guidance should then be followed by a mammogram of the area to assure that the mammographic abnormality is one in the same with the ultrasound abnormality. If not then localization via mammogram should also be performed. Left breast mammogram prior to surgical procedure Patient is presently on aspirin and Plavix and we will obtain clearance from cardiology for her to stop the blood thinners Risks and benefits of the procedure discussed with the patient. She understands and wishes to proceed. Cc: Dr. Camara
== END ==
LOC: WWCWWP 08:18
PROVIDERS: ATTEND Surgery
DX: R92.8 Other abnormal and inconclusive findings on diagnostic imaging of breast (principal)

== ENCOUNTER 2022-05-24 08:27 | Day surgery (SDC) | payer BC ==
[2022-05-19 10:01] VITALS: BMI 24.8
[~2022-05-24 08:27] MED LIST: HEPARIN SODIUM,PORCINE/PF 5,000 UNIT/0.5 ML SYRINGE SQ PRN; HYDROmorphone 0.5 MG/0.5 ML SYRINGE IVP PRN; LACTATED RINGERS 1,000 ML IV SCH; ONDANSETRON 4 MG/2 ML VIAL IVP ONE; Pre Op ABX Message 1 EACH MISC MISCELLANE ONE; fentaNYL (PF) 50 MCG/ML 2 ML AMP IV PRN
[2022-05-24] MEDS ORDERED: ALPRAZolam 0.5 MG TAB ONE (08:55)
[2022-05-24] MEDS ORDERED: ALPRAZolam 0.5 MG TAB PO ONE (08:57)
[2022-05-24] MEDS ORDERED: LIDOCAINE 1% INJ 10MG/ML (10 ML MDV) SQ ONE (10:07)
[2022-05-24 10:25] VITALS: RESP 16
[2022-05-24] MEDS ORDERED: DEXAMETHASONE SOD PHOSPHATE 4 MG/ML 1 ML VIAL IVP ONE (10:36)
[2022-05-24] MEDS ORDERED: LIDOCAINE 2% INJ 20 MG/ML (2 ML VIAL) ONE (10:37)
[2022-05-24] MEDS ORDERED: KETOROLAC 15 MG/ML 1 ML VIAL ONE (10:37)
[2022-05-24] MEDS ORDERED: PROPOFOL 10 MG/ML 20 ML VIAL IV ONE (10:37)
[2022-05-24] MEDS ORDERED: fentaNYL (PF) 50 MCG/ML 2 ML AMP ONE (10:37)
[2022-05-24] MEDS ORDERED: MIDAZOLAM 2 MG/2 ML VIAL ONE (10:37)
--- NOTE | 2022-05-24 10:48 | USB ---
Reason for Exam: Follow-up at short interval from prior study. Patient History: Menarche at age 11. First Full-Term at age 27. Premenopausal. Hormonal Contraceptives, starting at age 17 for 21 years, 1 month. 09/02/2021, Benign US biopsy breast VAD RT on the right side. Maternal grandmother had breast cancer, age 76. Maternal aunt had breast cancer, age 50. Risk Values: Raya 5 year model risk: 1.3%. NCI Lifetime model risk: 12.1%. Technique: Method: Targeted. Prior Study Comparison: 09/02/2021 Right MG diagnostic mammo RT wo CAD, [facility]. 03/07/2022 Right MG 3D diag mammo w/cad RT, [facility]. 05/13/2022 Left MG 3D diag mammo w/cad LT, [facility]. Findings: The upper section of the breast of the right breast was scanned. No suspicious shadowing lesions are identified. Benign-appearing cysts are present. A area of shadowing at the 12:00 position is not reproduced on the current examination. Real-time observation and real-time scanning was performed by the radiologist. No additional area for localization is identified by ultrasound. Mammographic wire localization recommended. Overall Assessment: Benign, BI-RAD 2 Management: Needle Localization of the right breast. A clinical breast exam by your physician is recommended on an annual basis and results should be correlated with mammographic findings. This exam should not preclude additional follow-up of suspicious palpable abnormalities. Results were given to the patient verbally at the time of exam. Electronically signed and approved by: Trevon Holt D.O. Radiologis
[2022-05-24] MEDS ORDERED: LIDOCAINE 1% INJ 10MG/ML (20 ML MDV) SQ ONE ×2 (11:03→11:32)
--- NOTE | 2022-05-24 11:33 | P.OP ---
Date of Procedure: 05/24/22 Preoperative Diagnosis: Mammographic abnormality right breast, discordant on core biopsy; prior ultrasound abnormality no longer seen on today's exam Postoperative Diagnosis: Same Procedure(s) Performed: needle localization lumpectomy, onco-plastic tissue transfer 31 cm Anesthesia: GETA Surgeon: Dasha Wasserman Estimated Blood Loss (ml): 5 IV fluids (ml): 600 Pathology: other (Breast tissue) Condition: stable Disposition: same day Indications for Procedure: Stellate Mammographic abnormality core biopsy discordant Operative Findings: Very dense breast tissue Description of Procedure: The patient is a 47-year-old white female who underwent a core biopsy of the area of concern in the right breast. This was felt to be discordant from the stellate mammographic abnormality in the right breast at 12:00. She additionally had an ultrasound abnormality which was not reproduced on today's exam. The area of concern mammographically was localized in the radiology suite. Following this the patient was brought to the operative suite. Following induction of anesthesia the right breast was prepped and draped in a sterile fashion. An incision was made and carried down to the right of the n eedle localization needle. This was carried circumferentially around the needle. Radiograph of the specimen revealed the area of concern had been removed. The specimen was painted for orientation. After we assured that hemostasis was attained titanium clips were placed. A superior pillar 4 x 2 cm was formed. An inferior pillar 4 x 2 cm was formed. The cavity itself was 4 x 3 cm. This was a total tissue transfer of 31 cm. After assured that hemostasis was attained the deep tissues were closed using 3- 0 Vicryl suture. This is followed by closure of the subcutaneous tissue with 3- 0 Vicryl suture. The skin was closed using 4-0 Monocryl followed by Steri- Strips. 10 mL of 1% lidocaine were injected into the area of concern. The patient tolerated the procedure in stable condition. All instrument and sponge counts were correct at the end of the case.
--- NOTE | 2022-05-24 11:35 | P.DS ---
Providers Attending physician: Dasha Wasserman Primary care physician: Sury Rodas Plan - Discharge Summary Discharge Rx Participant: Yes New Discharge Prescriptions: No Action Rosuvastatin Calcium [Crestor] 5 mg PO DAILY Losartan [Cozaar] 50 mg PO DAILY Clopidogrel [Plavix] 75 mg PO DAILY Discharge Medication List Clopidogrel [Plavix] 75 mg PO DAILY 05/28/21 [History] Losartan [Cozaar] 50 mg PO DAILY 05/28/21 [History] Rosuvastatin Calcium [Crestor] 5 mg PO DAILY 05/28/21 [History] Follow up Appointment(s)/Referral(s): Dasha Wasserman MD [STAFF PHYSICIAN] - 1 Week Activity/Diet/Wound Care/Special Instructions: Wear bra at all times May shower after [address] for 24 hours from discharge or if taking narcotic pain medicine Discharge Disposition: HOME SELF-CARE
[2022-05-24 11:55] VITALS: TEMP 96.8
[2022-05-24 13:12] VITALS: BP 133/85; PULSE 65
--- NOTE | 2022-06-01 08:57 | MM ---
Risk Values: Raya 5 year model risk: 1.3%. NCI Lifetime model risk: 12.1%. Pathology Description: Location: upper outer quadrant, middle. Approach: CC FA Needle Type: 7 cm Kopan The needle localization procedure with wire placement for surgical excision was explained to the patient. Benefits, alternatives, and risks were discussed. An informed consent was then obtained. A timeout was performed. The overlying skin was prepped in usual sterile fashion. Lidocaine was used as anesthetic into the skin and subcutaneous tissue up to the level of area of concern. A 7 cm needle was used. It was placed using a superior craniocaudal approach under mammographic guidance. Subsequent 90 degrees mammogram show the needle to be in satisfactory position relative to the targeted area. Area of architectural distortion was less distinct than the03/07/2022 comparison study. The wire was placed and the needle was withdrawn. The wire was fixed to patient's skin. Images were marked for surgeon. Images were reviewed and the case discussed with the surgeon prior to surgery. The patient tolerated the procedure well without any immediate complication. The patient was kept in the radiology department for short stay after the procedure and then taken to surgery for surgical excision. Specimen: The wire is identified in specimen mammogram. Note is made of a nearby core marker within the sample. Impression: 1. Successful needle localization with wire placement. Pathology Results: Result: Benign, Fibrocystic change. RIGHT BREAST, NEEDLE LOCALIZATION EXCISION: Benign breast with fibrocystic changes including radial scar/complex sclerosing lesion. Previous biopsy site. See note. Notes Smooth muscle myosin heavy chain (SMMHC) immunoperoxidase stain performed on block A2 and evaluated with an appropriate positive control highlights a myoepithelial layer surrounding proliferating ductal and glandular structures within the stroma. The results confirm the diagnosis of the specimen as benign with features of radial scar/complex sclerosing lesion. Overall Assessment: Benign Management: Diagnostic Mammogram of the right breast in 6 months. Electronically signed and approved by: Trevon Holt D.O. Radiologis
== END 2022-05-24 13:18 | disposition home or self-care (01) ==
LOC: OR 08:27
PROVIDERS: ATTEND Surgery
DX: N64.89 Other specified disorders of breast (principal); Z80.3 Family history of malignant neoplasm of breast
CPT/HCPCS: 19083; 19301; 76376; 81025; 88342; 88307; 76098; 19281; 76642; C1819; J2250; J1100; J2405; J2001 ×3; J3010; J1885; J2704; J1644

== ENCOUNTER → 2022-06-02 | Outpatient (CLI) | payer BC ==
--- NOTE | 2022-06-02 16:46 | P.PN ---
Progress Note - Text Progress Note Date: 06/02/22 Patient underwent a needle localization [place]pect[place] [id number]. Pathology revealed a radial scar/complex sclerosing lesion. She tolerated the procedure without difficulty. Emanation: Lungs: Clear Heart: Regular rate and rhythm Incision: Clean and dry Impression: Patient status post right breast needle localization lumpectomy benign Plan: Right breast mammogram in 6 months with physician exam at that time CC: Sury Jeter
[2022-06-02 16:48] VITALS: BP 156/86; PULSE 83; RESP 17; TEMP 98.4
== END ==
LOC: WWCWWP 15:44
PROVIDERS: ATTEND Surgery
DX: Z90.11 Acquired absence of right breast and nipple (principal); R92.8 Other abnormal and inconclusive findings on diagnostic imaging of breast

== ENCOUNTER → 2023-03-15 | Outpatient (CLI) | payer BC ==
--- NOTE | 2023-03-15 08:52 | MM ---
Reason for Exam: Additional evaluation requested from prior study. Last mammogram was performed 1 year(s) and 11 month(s) ago. Patient History: Menarche at age 11. First Full-Term at age 27. Premenopausal. Hormonal Contraceptives, starting at age 17 for 21 years, 1 month. 05/24/2022, Benign MG pre op needle loc RT on the right side. 09/02/2021, Benign US biopsy breast VAD RT on the right side. Maternal grandmother had breast cancer, age 76. Maternal aunt had breast cancer, age 50. Risk Values: Raya 5 year model risk: 1.8%. NCI Lifetime model risk: 14.9%. Prior Study Comparison: 08/26/2016 Bilateral Screening Mammogram, [facility]. 07/11/2018 Bilateral Screening Mammogram, [facility]. 07/20/2018 Left Diagnostic Mammogram, [facility]. 01/29/2020 Bilateral Screening Mammogram, [facility]. 04/21/2021 Bilateral Diagnostic Mammogram, [facility]. 09/02/2021 Right MG diagnostic mammo RT wo CAD, [facility]. 03/07/2022 Right MG 3D diag mammo w/cad RT, [facility]. 05/13/2022 Left MG 3D diag mammo w/cad LT, [facility]. Tissue Density: The breast tissue is extremely dense which could obscure a lesion on mammography. Findings: Analyzed By CAD. Pattern appears stable. Surgical markers are within normal right breast. No significant interval changes. No suspicious groups of microcalcifications, spiculated or lobular masses, architectural distortion or other secondary signs of malignancy are mammographically apparent. Overall Assessment: Benign, BI-RAD 2 Management: Screening Mammogram of both breasts in 1 year. A negative mammogram report should not preclude additional follow up of suspicious palpable abnormalities. Patient should continue monthly self breast exam. A clinical breast exam by your physician is recommended on an annual basis and results should be correlated with mammographic findings. Electronically signed and approved by: Trevon Holt D.O. Radiologis
== END | disposition home or self-care (01) ==
LOC: RADMAMWWP 08:06
PROVIDERS: ATTEND Surgery
DX: R92.343 Mammographic extreme density, bilateral breasts (principal); Z80.3 Family history of malignant neoplasm of breast
CPT/HCPCS: 77062; 77066

== ENCOUNTER → 2023-03-17 | Outpatient (CLI) | payer BC ==
[2023-03-17 20:27] LABS: Basophils # (A) 0.04 X 10*3/uL (0.00-0.10); Basophils % (A) 0.5 %; Eosinophils # (A) 0.06 X 10*3/uL (0.04-0.35); Eosinophils % (A) 0.8 %; HCT 40.4 % (37.2-46.3); HGB 13.2 g/dL (12.0-15.0); Lymphocytes # (A) 2.31 X 10*3/uL (0.90-5.00); MCH 31.2 pg (27.0-32.0); MCHC 32.7 g/dL (32.0-37.0); MCV 95.5 FL (80.0-97.0); Mean Platelet Volume 10.8 FL (9.5-12.2); Monocytes # (A) 0.48 X 10*3/uL (0.20-1.00); NRBC Per 100 WBC 0 X 10*3/uL (0.00-0.01); Neutrophils # (A) 5.05 X 10*3/uL (1.80-7.70); Neutrophils % (A) 63.4 %; Platelet Count 244 X 10*3/uL (140-440); RBC 4.23 X 10*6/uL (4.10-5.20); RDW 13.1 % (11.5-14.5); WBC 7.96 X 10*3/uL (4.50-10.00)
== END | disposition home or self-care (01) ==
LOC: LABPAT 12:36
PROVIDERS: ATTEND Obstetrics & Gynecology
DX: Z01.812 Encounter for preprocedural laboratory examination (principal)
CPT/HCPCS: 85025

== ENCOUNTER 2023-03-20 05:35 | Day surgery (SDC) | payer BC ==
[2023-03-15 09:54] VITALS: BMI 23.9
--- NOTE | 2023-03-17 12:05 | P.HPOB ---
History of Present Illness H&P Date: 03/17/23 Chief Complaint: Menorrhagia requesting endometrial ablation. This patient is a pleasant 47-year-old 3 para 1 female who presented to me with complaints of long-standing menorrhagia. Patient has a history of hypertension and carotid stenosis and is not a hormone candidate due to anticoagulant therapy (Plavix). Her menstrual cycles are very heavy and long. Her menses are so heavy that she oftentimes stops her anticoagulant while on her menses. Patient had an ultrasound which showed normal endometrium but perhaps a very small uterine septum. Patient's requested trial of endometrial ablation for treatment and I believe she is a candidate. I did attempt to do an endometrial biopsy in the office however she's had cervical stenosis therefore we'll do endometrial sampling the time of her ablation Review of Systems Constitutional: Reports as per HPI Genitourinary: Reports menorrhagia Menstruation: Reports as per HPI Past Medical History Past Medical History: Hyperlipidemia, Hypertension Additional Past Medical History / Comment(s): "Signs of minimal blockages in carotids, supposed to be on Plavix but stopped it about a month ago, because it's causing heavy heavy periods." "Occasional IBS since gallbladder was removed." History of Any Multi-Drug Resistant Organisms: None Reported Past Surgical History: Breast Surgery, Cholecystectomy Additional Past Surgical History / Comment(s): Colonoscopy, right breast biopsy X2, right breast lumpectomy - benign. Past Anesthesia/Blood Transfusion Reactions: No Reported Reaction Past Psychological History: No Psychological Hx Reported Smoking Status: Never smoker Past Alcohol Use History: Occasional Past Drug Use History: None Reported - Past Family History Mother Additional Family Medical History / Comment(s): MS. Medications and Allergies Home Medications Medication Instructions Recorded Confirmed Type Clopidogrel [Plavix] 75 mg PO DAILY 05/28/21 03/15/23 History Losartan [Cozaar] 50 mg PO HS 05/28/21 03/15/23 History Rosuvastatin Calcium [Crestor] 5 mg PO HS 05/28/21 03/15/23 History Allergies Allergy/AdvReac Type Severity Reaction Status Date / Time No Known Allergies Allergy Verified 03/15/23 09:46 Exam - OBG Physical Exam Abdomen: bowel sounds normal, no diffuse tenderness, no bruit present, no guarding noted, no hepatomegaly, no splenomegaly, no mass Vulva: both: normal Vagina: normal moisture, no discharge Cervix: no lesion (Stenotic), no discharge Uterus: normal size Results Transvaginal ultrasound as above Assessment and Plan Assessment: This is a pleasant 48-year-old 3 para 1 female with long-standing menorrhagia requesting trial of endometrial ablation for treatment. Plan is hysteroscopy, D&C, and NovaSure endometrial ablation. I did discuss with the patient in fact that she has a possible small uterine septum. I do not believe this is large enough to prohibit trial of ablation. I did discuss the surgery with the patient and risks and risks of infection, bleeding, possible uterine perforation, and/or thermal injury. All the patient's questions are answered and a written consent is obtained. (1) Menorrhagia Status: Chronic Code(s): N92.0 - EXCESSIVE AND FREQUENT MENSTRUATION WITH REGULAR CYCLE SNOMED Code(s): 047597336
[~2023-03-20 05:35] MED LIST changes: -HEPARIN SODIUM,PORCINE/PF 5,000 UNIT/0.5 ML SYRINGE SQ PRN; -HYDROmorphone 0.5 MG/0.5 ML SYRINGE IVP PRN; -LACTATED RINGERS 1,000 ML IV SCH; -ONDANSETRON 4 MG/2 ML VIAL IVP ONE; -fentaNYL (PF) 50 MCG/ML 2 ML AMP IV PRN
[2023-03-20] MEDS ORDERED: HYDROmorphone 0.5 MG/0.5 ML SYRINGE IVP PRN (06:13)
[2023-03-20] MEDS ORDERED: LACTATED RINGERS 1,000 ML IV SCH (06:13)
[2023-03-20] MEDS ORDERED: LIDOCAINE 1% (10MG/ML) FOR IV START INTRADERMA PRN (06:13)
[2023-03-20] MEDS ORDERED: fentaNYL (PF) 50 MCG/ML 2 ML AMP IVP PRN (06:13)
[2023-03-20] MEDS ORDERED: MIDAZOLAM 2 MG/2 ML VIAL IV PRN (06:13)
[2023-03-20] MEDS ORDERED: ONDANSETRON 4 MG/2 ML VIAL IVP ONE (06:13)
[2023-03-20] MEDS ORDERED: DEXAMETHASONE SOD PHOSPHATE 4 MG/ML 1 ML VIAL IV ONE (06:13)
[2023-03-20] MEDS ORDERED: MIDAZOLAM 2 MG/2 ML VIAL ONE (06:50)
[2023-03-20] MEDS ORDERED: LIDOCAINE 1% INJ 10MG/ML (20 ML MDV) ONE (06:50)
[2023-03-20] MEDS ORDERED: fentaNYL (PF) 50 MCG/ML 2 ML AMP ONE (06:50)
[2023-03-20] MEDS ORDERED: KETOROLAC 30 MG/ML 1 ML VIAL ONE (06:50)
[2023-03-20] MEDS ORDERED: PROPOFOL 10 MG/ML 20 ML VIAL IV ONE (06:50)
[2023-03-20] MEDS ORDERED: FAMOTIDINE 20 MG/2 ML VIAL IVP ONE (06:57)
--- NOTE | 2023-03-20 07:39 | P.OP ---
Date of Procedure: 03/20/23 Preoperative Diagnosis: Menorrhagia Postoperative Diagnosis: Same Procedure(s) Performed: #1: Hysteroscopy. #2: Dilation and curettage. #3: NovaSure endometrial ablation Anesthesia: MAC Surgeon: Misael Gomez Estimated Blood Loss (ml): 10 Urine output (ml): 10 Pathology: other (Uterine curettings) Condition: stable Disposition: PACU Indications for Procedure: Please see dictated H&P for intimate details of this patient's admission. In brief summary this is a pleasant 48-year-old female with long-standing menorrhagia who is requesting trial of NovaSure endometrial ablation for treatment. Patient understands this procedure and risks and risks of infection, bleeding, possible uterine perforation, and/or thermal injury. All the patient's questions are answered and a written consent is obtained. Operative Findings: This patient had a normal-appearing endometrial cavity without evidence of a uterine septum grossly. Description of Procedure: This patient is taken to the operating room where she is laid in the supine position. She subsequent goes under general mask anesthesia without incident. With an adequate level of anesthesia she's placed in dorsal lithotomy position. She has a vaginal perineal prep and drape. Examination under anesthesia shows a mid position uterus. A weighted speculum was placed in the posterior vagina. The bladder is drained at this time for 10 mL of clear urine. The anterior lip of cervix is then grabbed with an Allis clamp. I then gently open the cervix and sound the uterus to 7.5 cm. Gentle dilation is then done to allow the hysteroscope easily uterine cavity. Using saline solution, hysteroscopy is performed and the uterine cavity is measured to a length of 5.0 cm. Gentle dilation is done more to allow a small curette easily into the uterine cavity. A gentle but thorough 4 quadrant curettage is then done. With this done the NovaSure device is then opened and set to a length of 5.0 cm. It is seated in place and opens up to a width of 2.5 cm. After passing the cavity integrity test, it is enabled at a 69 W setting for 99 seconds. NovaSure device is then removed and appears to be intact. With this done hysteroscopy is then performed once again the uterine cavity appears to be completely ablated up to the endocervix. Excellent results are noted. The Allis clamp and weighted speculum removed. All counts are correct 3. There are no complications. Patient is awakened from anesthesia and taken to recovery room in satisfactory condition.
[2023-03-20 07:59] VITALS: RESP 16; TEMP 98
[2023-03-20 08:50] VITALS: BP 147/87; PULSE 64
== END 2023-03-20 09:10 | disposition home or self-care (01) ==
LOC: OR 05:35
PROVIDERS: ATTEND Obstetrics & Gynecology
DX: N92.0 Excessive and frequent menstruation with regular cycle (principal); I10 Essential (primary) hypertension; E78.5 Hyperlipidemia, unspecified; E11.9 Type 2 diabetes mellitus without complications; I65.29 Occlusion and stenosis of unspecified carotid artery; F10.90 Alcohol use, unspecified, uncomplicated; K58.9 Irritable bowel syndrome, unspecified; Z90.49 Acquired absence of other specified parts of digestive tract; Z79.02 Long term (current) use of antithrombotics/antiplatelets; Z98.890 Other specified postprocedural states; Z79.899 Other long term (current) drug therapy
CPT/HCPCS: 58563; 81025; 88305; J2250; J1100; J2405; J2001; J3010; J1885; J3490; J2704

== ENCOUNTER → 2024-05-31 | Outpatient (CLI) | payer BC ==
--- NOTE | 2024-05-31 12:04 | MM ---
Reason for Exam: Clinical finding. Last mammogram was performed 1 year(s) and 2 month(s) ago. Indicated Problems: Lump or thickening of the right side for 2 Week(s). Patient History: Menarche at age 11. First Full-Term at age 27. Perimenopausal. Hormonal Contraceptives, starting at age 17 for 21 years, 1 month. 05/24/2022, Benign MG pre op needle loc RT on the right side. 09/02/2021, Benign US biopsy breast VAD RT on the right side. Maternal grandmother had breast cancer, age 76. Maternal aunt had breast cancer, age 50. Last menstrual period: 05/30/2024 Risk Values: Raya 5 year model risk: 1.6%. NCI Lifetime model risk: 14.5%. Prior Study Comparison: 07/20/2018 Left Diagnostic Mammogram, [facility]. 01/29/2020 Bilateral Screening Mammogram, [facility]. 04/21/2021 Bilateral Diagnostic Mammogram, [facility]. 09/02/2021 Right MG diagnostic mammo RT wo CAD, [facility]. 03/07/2022 Right MG 3D diag mammo w/cad RT, [facility]. 05/13/2022 Left MG 3D diag mammo w/cad LT, [facility]. 03/15/2023 Bilateral MG 3D diag mammo w/cad MICHELE, [facility]. Tissue Density: The breasts are extremely dense, which lowers the sensitivity of mammography. Findings: Analyzed By CAD. There is a 2.1 cm nodule overlying the area of palpable abnormality right breast right upper outer quadrant approximately 4-6 cm from the nipple.. Postbiopsy changes are seen. Overall Assessment: Incomplete: need additional imaging evaluation, BI-RAD 0 Management: Diagnostic Breast Ultrasound of the right breast. . Results were given to the patient verbally at the time of exam. Patient should continue monthly self-breast exams. A clinical breast exam by your physician is recommended on an annual basis. This exam should not preclude additional follow-up of suspicious palpable abnormalities. Note on Raya scores and lifetime risk: 1. A Raya score greater than 3% is considered moderate risk. If this is the case, consider specialist referral to assess eligibility for a risk reducing agent. 2. If overall lifetime risk for the development of breast cancer is 20% or higher, the patient may qualify for future screening with alternating mammogram and breast MRI. [facility], , 05/31/2024 11:46 AM. Electronically signed and approved by: Osmel Bains M.D. Radiologis
--- NOTE | 2024-05-31 12:12 | USB ---
Reason for Exam: Clinical finding. Patient History: Menarche at age 11. First Full-Term at age 27. Perimenopausal. Hormonal Contraceptives, starting at age 17 for 21 years, 1 month. 05/24/2022, Benign MG pre op needle loc RT on the right side. 09/02/2021, Benign US biopsy breast VAD RT on the right side. Maternal grandmother had breast cancer, age 76. Maternal aunt had breast cancer, age 50. Risk Values: Raya 5 year model risk: 1.6%. NCI Lifetime model risk: 14.5%. Technique: Method: Targeted. Prior Study Comparison: 03/07/2022 Right MG 3D diag mammo w/cad RT, [facility]. 05/13/2022 Left MG 3D diag mammo w/cad LT, [facility]. 03/15/2023 Bilateral MG 3D diag mammo w/cad MICHE[place], [facility]. Findings: The upper section of the breast of the right breast, the area of palpable concern of the right breast, the axilla of the right breast and the retroareolar of the right breast were scanned. A targeted ultrasound of the upper outer quadrant right breast, axilla and retro-areolar region were reviewed. There is a complex cystic lesion measuring 2.1 cm 9:00 position right breast. Overall Assessment: Suspicious, BI-RAD 4 Management: Ultrasound Core Biopsy of the right breast. A clinical breast exam by your physician is recommended on an annual basis and results should be correlated with mammographic findings. This exam should not preclude additional follow-up of suspicious palpable abnormalities. Results were given to the patient verbally at the time of exam. [facility], , 05/31/2024 12:07 PM. Electronically signed and approved by: Osmel Bains M.D. Radiologis
== END | disposition home or self-care (01) ==
LOC: RADMAMWWP 10:54
PROVIDERS: ATTEND Obstetrics & Gynecology
DX: N63.10 Unspecified lump in the right breast, unspecified quadrant (principal); R92.341 Mammographic extreme density, right breast; Z80.3 Family history of malignant neoplasm of breast; Z92.0 Personal history of contraception
CPT/HCPCS: 77062; 77066

== ENCOUNTER → 2024-07-12 | Day surgery (SDC) | payer BC ==
--- NOTE | 2024-07-18 11:54 | MM ---
Reason for Exam: Post Procedure Mammogram. Last screening mammogram was performed 2 month(s) ago. Patient History: Menarche at age 11. First Full-Term at age 27. Perimenopausal. Hormonal Contraceptives, starting at age 17 for 21 years, 1 month. 05/24/2022, Benign MG pre op needle loc RT on the right side. 09/02/2021, Benign US biopsy breast VAD RT on the right side. Maternal grandmother had breast cancer, age 76. Maternal aunt had breast cancer, age 50. Last menstrual period: 06/26/2024 Risk Values: Raya 5 year model risk: 1.6%. NCI Lifetime model risk: 14.5%. Prior Study Comparison: 05/13/2022 Left MG 3D diag mammo w/cad LT, [facility]. 05/24/2022 Right US breast limited RT, [facility]. 03/15/2023 Bilateral MG 3D diag mammo w/cad MICHELE, [facility]. 05/31/2024 Bilateral MG 3D diag mammo w/cad MIC[place], [facility]. Tissue Density: Right: The breasts are extremely dense, which lowers the sensitivity of mammography. Pathology Description: Location: 9 o'clock. The ultrasound guided cyst aspiration procedure was explained to the patient. The risks, benefits, alternatives were discussed. An informed consent was then obtained. A time out was performed. The patient was placed in supine positioning for imaging and for the procedure. The overlying skin was prepped with betadine and sterilely draped in usual sterile fashion. 5 ml 1% lidocaine was used as anesthetic into the skin and deeper breast tissue up to area of concern in the right breast 9:00 5 cm from nipple.. Under ultrasound guidance, an 16-gauge needle was advanced into the cyst and aspiration yielded 3 mL of cloudy fluid was yellow/milky tinge. The fluid was labeled and sent for laboratory analysis. A clip was left in lesion. Good hemostasis was obtained with direct pressure. Postprocedure mammogram: The patient was transferred to mammography for physician ordered post procedure mammogram for clip placement verification. The clip is in the expected region of the biopsy. The patient tolerated the procedure well without any immediate complication. The patient was discharged to home in stable condition. Impression: Successful ultrasound guided cyst aspiration right breast. Cytology pending. [facility], , 07/12/2024 12:03 PM. Pathology Results: Result: Benign. Pathology and radiology were reviewed. Findings are concordant. RIGHT BREAST, NINE O'CLOCK, ASPIRATION: Scattered and occasional foamy macrophages, favor fat necrosis. Negative for diagnostic malignancy. Overall Assessment: Benign Assessment: MG diagnostic mammo RT wo CAD - Right: Benign, BI-RAD 2. Management: Diagnostic Breast Ultrasound of the right breast in 6 months. Electronically signed and approved by: Gregor Newby DO
== END ==
LOC: RADUSWWP 10:14
PROVIDERS: ATTEND Surgery
DX: R92.8 Other abnormal and inconclusive findings on diagnostic imaging of breast (principal); Z80.3 Family history of malignant neoplasm of breast
CPT/HCPCS: 88305; 88173; 77065; 76942; 19000; A4648